=== PATIENT | female | born 1995 | race Caucasian/White ===

== ENCOUNTER 2017-04-09 13:35 | Emergency (ER) | payer OTHER ==
[~2017-04-09] VITALS: Ht 180.3 cm; Wt 66.5 kg
[2017-04-09 13:45] VITALS: Ht 180.3 cm; Wt 66.5 kg
[2017-04-09] MEDS ORDERED: XYLOCAINE 1%/SOD BICARB 20 ML VIAL INFIL ONE (14:00)
[2017-04-09 14:54] VITALS: BP 127/73; PULSE 87; TEMP 36.8; O2SAT 96
--- NOTE | 2017-04-09 15:14 | EMERGENCY ROOM VISIT NOTE ---
History First contact with patient: 13:49 Chief Complaint: LACERATION/CUT (SUT/DERMABOND) Stated Complaint: LACERATION ON CHIN History of Present Illness The patient is a 21 year old female who presents to the Emergency Room with complaints of a chin laceration that occurred last night around midnight, or approximately 14 hours ago. The patient denies any loss of consciousness, neck pain, jaw pain or other injuries from her fall. The patient initially went to the [facility] urgent care center where she was told that the wound was significantly contaminated with gravel, and would need pressure irrigation. Tetanus immunization is up-to-date. The patient denies any pain. Review of Systems 10 system review was performed and was negative except for pertinent positives and negatives as indicated in history of present illness Past Medical/Surgical History Medical Problems: (1) No significant past medical history Surgical Problems: (1) No history of previous surgery Family History FH: cancer FH: heart disease Social History Smoking Status: Never Smoker Alcohol Use: none Marital Status: single Housing Status: lives with roommate Occupation Status: [email or web address] Current/Historical Medications No Active Prescriptions or Reported Meds Physical Exam Vital Signs Date Time Temp Pulse Resp B/P (MAP) Pulse Ox O2 Delivery O2 Flow Rate FiO2 04/09/17 14:54 36.8 87 18 127/73 96 04/09/17 13:45 36.8 114 18 127/73 96 Room Air Physical Exam CONSTITUTIONAL: Healthy and well nourished. Alert and oriented X 3 with positive affect. GCS 15. HEENT: Examination of the inferior chin region shows a 2 cm transverse laceration that has irregular borders. No active bleeding noted. There is no gross wound contamination. Patient has no tenderness to palpation of the mandible or TMJs. Pupils equal, round and reactive. No epistaxis, subconjunctival hemorrhage, raccoon's eyes or Galo sign. OROPHARYNX: No obvious dental trauma or other intraoral injuries. NECK: Full active range of motion without discomfort. MUSCULOSKELETAL: Full range of motion of all joints without discomfort. INTEGUMENTARY: No rash or other significant dermatologic conditions noted. NEUROLOGIC: Facial sensations are intact. Medical Decision & Procedures Procedure Laceration repair was performed under local anesthesia after receiving verbal consent from the patient. Using buffered 1% lidocaine without epinephrine, good local anesthesia was administered. The peripheral tissue was enclosed with iodine. Exploration of the wound does not show any additional wound contamination or debris. The wound was then pressure irrigated with approximately 50 mL of normal saline. The wound was then approximated using 6- 0 nylon simple interrupted sutures. Bacitracin was applied. The patient tolerated the procedure well ED Course Patient history and physical exam were performed. Nurse's notes were reviewed. Vital signs were reviewed and were normal. Laceration repair was performed under local anesthesia. The patient was provided additional verbal and written wound care instructions. Ice for swelling. Ibuprofen or Tylenol as needed for pain. Suture removal in 5-7 days, or seek reevaluation sooner for any signs of wound infection. The patient was happy with plan of care, voice understanding of all discharge instructions, and denied any pain at the time of discharge. Medical Decision Medication Reconcilliation Current Medication List: was personally reviewed by me Blood Pressure Screening Patient's blood pressure: Normal blood pressure Impression Primary Impression: Chin laceration Departure Information Dispostion Home / Self-Care Prescriptions No Active Prescriptions or Reported Meds Referrals No Doctor, Assigned (PCP) Forms HOME CARE DOCUMENTATION FORM, IMPORTANT VISIT INFORMATION Patient Instructions [facility] Additional Instructions Keep wound clean and dry. Do not allow any crusting or dried blood to accumulate on sutures. If this occurs, use a 1:1 solution of hydrogen peroxide/ water on a Q-tip to clean the wound. Use an antibiotic ointment for 3 days, then let wound dry. Suture removal in 5-7 days. Return sooner for any signs of infection (increasing redness, swelling, drainage). Ice for swelling. Ibuprofen 600 mg and/or Tylenol 1000 mg every 6 hrs if needed for pain. AFTER SUTURES ARE REMOVED: Apply vitamin E oil twice daily for 2 additional weeks. Any time you go outside over the next year, also apply a high SPF factor sunblock to minimize scar darkening. If after approximately 6 months you are not happy with the resulting scar, follow-up with a plastic surgeon for further scar revision. Problem Qualifiers Primary Impression: Chin laceration Encounter type: initial encounter Qualified Codes: S01.81XA - Laceration without foreign body of other part of head, initial encounter
== END 2017-04-09 14:55 | disposition home or self-care (01) ==
LOC: C.EDB 13:38 → C.EDD 14:55
DX: S01.81XA Laceration without foreign body of other part of head, initial encounter (principal); X58.XXXA Exposure to other specified factors, initial encounter